=== PATIENT | male | born 1960 | race Caucasian/White ===

== ENCOUNTER 2024-10-16 13:17 | Outpatient (CLI) | payer BC ==
[~2024-10-16 13:17] MED LIST: Magnevist 469MG/ML 20 ML VIAL ONE
== END 2024-10-16 13:18 | disposition home or self-care (01) ==
LOC: CSHMRI 13:17
PROVIDERS: ATTEND Urology
DX: C61 Malignant neoplasm of prostate (principal); M89.9 Disorder of bone, unspecified
CPT/HCPCS: 36415; 72197; 82565